=== PATIENT | male | born 1955 | race Caucasian/White ===

== ENCOUNTER 2018-04-04 06:37 | Emergency (ER) | payer MEDICAID, SELFPAY ==
[2018-04-04 06:45] VITALS: BP 177/84; PULSE 89; RESP 18; TEMP 36.5; O2SAT 96
[2018-04-04 07:23] LABS: Bilirubin Negative (Negative); Blood Moderate (Negative); Clarity Sl Cloudy; Glucose Negative (Negative); Ketones Negative (Negative); Leukocyte Esterase Trace (Negative); Nitrite Positive (Negative); Specific Gravity >= 1.030 (1.005-1.025)
--- NOTE | 2018-04-04 07:27 | ED.FU.B ---
- Follow Up Follow Up Plan: Patient had presented with complaints of urinary symptoms and decreased urination. Due to other critical patients in the department, he was not seen but after discussion with the nurse regarding his complaints basic orders for a liter of IV fluid, CBC, BMP, urinalysis was placed. When nursing went to start his IV and collect his blood, he asked if he would be out of the ED by 8 AM. He was told that this was unlikely. He then, according to the nurse, ripped his wrist bracelet off and said I'm out of here and left. He was not formally seen by me. Orders were canceled. Patient left after triage without being seen.
[2018-04-04 07:31] LABS: Bacteria Many HPF (Negative); C & S Indicated? Yes; Casts Negative LPF (Negative); Crystals Negative HPF (Negative); Epithelial Cells Negative HPF (Negative); Mucus Negative (Negative)
== END 2018-04-04 07:18 | disposition left before discharge ==
PROVIDERS: Emergency Provider Emergency Medicine; PCP Family Medicine
DX: Z53.21 Procedure and treatment not carried out due to patient leaving prior to being seen by health care provider (principal)
CPT/HCPCS: 80048; 81003; 81015; 85025; 87086

== ENCOUNTER 2018-04-04 20:53 | Emergency (ER) | payer MEDICAID, SELFPAY ==
[2018-04-04 21:06] VITALS: BP 153/80; PULSE 85; RESP 16; TEMP 36.7; O2SAT 98
--- NOTE | 2018-04-04 21:43 | DI.RPTCT_ITS ---
SYMPTOM/DIAGNOSIS: UTI, HISTORY OF STONES, SOFT LEFT SIDED DISCOMFORT RENAL COLIC CT: Images were performed from the level of the adrenals through the ischial tuberosities without IV or oral contrast. The lung bases are clear. The liver is mildly enlarged and shows fatty infiltration. There is no evidence of biliary dilatation. A noncalcified gallstone is faintly visible. There is no gallbladder distension or wall thickening. The spleen, pancreas and right adrenal are unremarkable. There is a stable mass of the left adrenal gland containing fat, consistent with an adenoma vs myolipoma. There is mild dilatation of the left renal pelvis and left ureter. There is mild stranding around the left ureter. No renal, ureteral or bladder calculi seen. The prostate is markedly enlarged. There is stranding around the bladder which could indicate acute cystitis. There is no dilatation of the right renal collecting system. There is nonspecific bilateral virgen-renal stranding. The appendix appears normal. There is no bowel dilatation or inflammatory change. Diverticulosis is noted in the sigmoid region. No lytic or blastic bony lesions seen. IMPRESSION: Mild dilatation of the left renal collecting system with no visible stone. The findings could be secondary to a recently passed stone. There is marked enlargement of the prostate to 7 cm in diameter. There is bladder wall thickening and surrounding stranding which could be secondary to cystitis. A bladder mass could not be excluded on this exam.
--- NOTE | 2018-04-04 21:43 | ED.GENADUL_ITS ---
Disposition Clinical Impression: UTI (urinary tract infection), BPH (benign prostatic hyperplasia), Scrotal swelling Disposition: HOME Condition: Good Instructions: Urinary Tract Infection in Men (ED), Levofloxacin (By mouth) Additional Instructions: Please get prescriptions filled in the morning and start taking both potassium supplement and antibiotic as directed. Contact your primary care physician to make follow-up arrangements for early next week. Return to the emergency department for spiking fevers, confusion, increasing back or abdominal pain, inability to urinate, other concerns. Would also recommend follow-up with urology, Dr. Moura because of your enlarged prostate and the swelling in your left scrotum. Please call his office to make arrangements for follow-up in the next 1-2 weeks. Prescriptions: Levofloxacin [Levaquin] 750 mg PO DAILY #14 tablet Potassium Chloride [K-Dur] 20 meq PO DAILY #14 tabcr Referrals: José Miguel Moura MD [ [facility] STAFF PHYSICIAN] - Kennedy Mason [Primary Care Provider] - Medical Decision Making - Lab Data Results reviewed for labs ordered during visit: Yes - Radiology Data Radiology results: report reviewed - Medical Decision Making Patient with UTI by urinalysis this morning. Repeat not sent. Bladder scan this morning showed residual of only about 60 mL. Bladder scan tonight with residual of only about 110. We will not place catheter at this point. Will place IV and get a CBC and chemistry. We will give a dose of IV ceftriaxone. Will give a liter of LR. Because of the prior history of kidney stones and complaints of may be some left-sided abdominal pain will get a stone study to be sure we are not dealing with an infected stone. 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 He does have a large swollen left hemiscrotum which he states is unchanged since hernia repair this year. It is not tender. He has an enlarged prostate on rectal exam but it does not appear to be tender. Patient's laboratory studies significant for potassium of 2.9. He is ordered for both oral and IV replacement. He is on a combination lisinopril/ hydrochlorothiazide tablet. He is not on potassium supplementation. We will give him a prescription for potassium. His white count is 11. His creatinine is normal. His CT scan shows hepatomegaly. He also is noted to have a mass in the left adrenal most likely adenoma. He has some nonspecific bilateral perinephric stranding and maybe a little bit of prominence in the left collecting system. There is no stone. He does have evidence of significant cystitis. He also has an extremely large prostate. Patient has received IV ceftriaxone. He does not look toxic. His bladder scan is reasonable and he is able to urinate. He should be able to manage as an outpatient on oral Levaquin. Will discharge home with instructions to return to ED over the weekend if he has any spiking fevers, altered mental status, inability to urinate, increasing abdominal pain, other concerns. We will otherwise have him follow-up with primary care next week for reevaluation and probably repeat potassium level. I will also refer him to Dr. Moura from urology for evaluation of his BPH and his enlarged left hemiscrotum. This does not appear to be an acute issue. History of Present Illness - General Chief complaint: Urinary Stated complaint: UNABLE TO URINATE X 2 DAYS Time Seen by Provider: 04/04/18 20:54 Source: patient Mode of arrival: ambulatory Limitations: no limitations - History of Present Illness Initial comments: Patient presents to ED with continued complaints of difficulty urinating, urgency, sensation of not emptying his bladder for the last few days. He has nausea and feels generally unwell. He has had sweats but he does not know if he has had fever. He has had no chills. He has no back pain. He has left testicular swelling which has been present since a hernia repair earlier this year. He does not complain of testicular pain. He maybe has some left sided abdominal pain on and off but is not clear about this. He had presented this morning but when he was told that he would not be ready for discharge until after 8 AM he abruptly left. He had provided a urine which came back positive for infection. I had asked for him to be contacted to return here or follow-up with primary care. - Related Data Aspirin [Aspirin Ec] 81 mg PO daily prn 11/27/16 Lisinopril/Hydrochlorothiazide [Lisinopril-Hctz 20-25 Mg Tab] 1 tab-cap PO DAILY #90 tab-cap 07/27/17 Amlodipine Besylate 5 mg PO DAILY #90 tab-cap 01/23/18 Bismuth Subsalicylate [Pepto-Bismol Suspension] 1 cap PO daily prn 01/23/18 Levofloxacin [Levaquin] 750 mg PO DAILY #14 tablet 04/05/18 Potassium Chloride [K-Dur] 20 meq PO DAILY #14 tabcr 04/05/18 Allergies Allergy/AdvReac Type Severity Reaction Status Date / Time terbinafine HCl Allergy Intermediate CHEST PAIN Unverified 04/04/18 06:52 [From Lamisil] /SOB MPI Contrast AdvReac Intermediate Nausea, Uncoded 04/04/18 06:52 vomiting malaise Review of Systems Constitutional: diaphoresis, malaise. denies: chills, fever Eyes: denies: eye discharge, vision change ENT: denies: throat pain, congestion Respiratory: denies: cough, shortness of breath Cardiovascular: denies: chest pain Gastrointestinal: abdominal pain (maybe on/off but not currently), nausea. denies: vomiting, diarrhea Genitourinary: urgency, dysuria, frequency, other (swollen left scrotum). denies: testicular pain Musculoskeletal: denies: back pain, arthralgia Skin: denies: rash Neurological: denies: headache, weakness, numbness Past Medical History - Past Medical History Medical history: GERD, hypertension BPH Surgical history: herniorraphy, other (TURP) - Social History Smoking status: former smoker Alcohol use: none Drug use: none General Exam - General Limitations: no limitations General appearance: alert, in no apparent distress - Head Head exam: Present: atraumatic, normocephalic - Eye Eye exam: Present: normal apperance - ENT ENT exam: Present: mucous membranes moist - Respiratory Respiratory exam: Present: normal lung sounds bilaterally - Cardiovascular Cardiovascular Exam: Present: regular rate, normal rhythm, normal heart sounds - GI/Abdominal GI/Abdominal exam: Present: soft, other (Left rectus diathesis). Absent: distended, tenderness, guarding - Rectal Rectal exam: Present: normal inspection, normal rectal tone, prostate enlargement. Absent: prostate tenderness - exam: Present: normal inspection, scrotal swelling (Markedly so on left). Absent: testicular tenderness - Extremities Exam Extremities exam: Present: normal inspection. Absent: tenderness - Back Exam Back exam: Absent: CVA tenderness (R), CVA tenderness (L) - Neurological Exam Neurological exam: Present: alert, oriented X3, CN II-XII intact. Absent: motor sensory deficit - Psychiatric Psychiatric exam: Present: normal affect, normal mood - Skin Skin exam: Present: warm, dry, intact Course Vital Signs - 24 hr 04/04/18 21:06 Temperature 98.1 F Pulse 85 Respiratory 16 Rate Blood Pressure 153/80 Pulse Oximetry 98
[2018-04-04] MEDS: Lactated Ringers 1,000 ML 1000 ML IV (21:59)
[2018-04-04 22:04] LABS: Abs Immature Grans 0.03 k/cumm (0.0-0.09); Absolute Basophil Count 0.02 k/cumm (0.0-0.2); Absolute Eosinophil Count 0.15 k/cumm (0.0-0.7); Absolute Lymphocyte Count 1.68 k/cumm (1.2-3.4); Basophils % 0.2; Eosinophils % 1.3; HCT 40.8 % (40.0-50.0); HGB 14.3 g/dL (13.5-17.5); Immature Grans % 0.3; Mean Corpuscular Hemoglobin 29.4 pg (27.0-33.0); Mean Corpuscular Volume 83.8 fL (80-95); Mean Platelet Volume 9.6 fL (8.0-11.0); Neutrophils % 70.2; Platelet Count 219 x1000/uL (130-400); RBC 4.87 m/cumm (4.50-6.00); RBC Distribution Width 14.2 % (11.8-14.1); White Blood Cell Count 11.19 k/cumm (4.4-10.8)
[2018-04-04 22:09] LABS: Anion Gap 8.3 mmol/L (3-11); BUN 18 mg/dL (7-18); CO2 31.7 mmol/L (21.0-32.0); CREATININE 0.92 mg/dL (0.70-1.30); Calcium 9.6 mg/dL (8.5-10.1); Chloride 94 mmol/L (98-107); Glucose 104 mg/dL (70-100); Sodium 134 mmol/L (136-145)
[2018-04-04 22:15] LABS: Potassium 2.9 mmol/L (3.5-5.1)
[2018-04-04] MEDS: Potassium Chloride 20 MEQ TABCR 40 MEQ PO (22:28)
[2018-04-04 22:36] LABS: Absolute Monocyte Count 1.45 k/cumm (0.11-0.7); Absolute Neutrophil Count 7.86 k/cumm (1.2-6.7)
[2018-04-04] MEDS: POTASSIUM CHLORIDE 10 MEQ/100 ML BAG 100 MEQ IVPB (22:45)
--- NOTE | 2018-04-04 23:02 | DI.VRAD_ITS ---
EXAM: CT Abdomen and Pelvis Without Intravenous Contrast EXAM DATE/TIME: 04/04/2018 9:45 PM CLINICAL HISTORY: 62 years old, male; Pain; Abdominal pain; Generalized; Patient HX: History of stones, uti, some left side discomfort TECHNIQUE: Axial computed tomography images of the abdomen and pelvis without intravenous contrast. Coronal and sagittal reformatted images were created and reviewed. COMPARISON: PROSTATE US AND NEEDLE BIOPSY 2013-08-19 10:42 FINDINGS: Lower thorax: A small hiatal hernia is present. ABDOMEN: Liver: There is hepatomegaly. The liver measured approximately 18.1 cm in the midclavicular line. Gallbladder and bile ducts: Normal. No calcified stones. No ductal dilation. Pancreas: Normal. No ductal dilation. Spleen: Normal. No splenomegaly. Adrenals: An approximately 3.1 x 3.0 cm solid mass is seen within the apex of the left adrenal gland. This is thought likely consistent with a cortical adenoma. The right adrenal gland appeared normal. Kidneys and ureters: Nonspecific bilateral perinephric stranding is noted. The stranding appears slightly asymmetrically more pronounced on the left. There is slight prominence of the left intrarenal collecting system with a continuous mild left ureter demonstrated. These findings may be consistent with recent passage of a tiny calculus. Stomach and bowel: Diverticulosis coli is identified; most prevalent in the sigmoid region. No associated acute diverticulitis. Marginal osteophytic spurring is present throughout the lumbar vertebrae. Appendix: No evidence of appendicitis. PELVIS: Bladder: Perivesical stranding is present indicative of acute cystitis. Reproductive: The seminal vesicles appeared normal and symmetrical in size. There is marked prostatic hypertrophy noted. The prostate gland measured approximately 7.0 cm transversely. ABDOMEN and PELVIS: Intraperitoneal space: Normal. No free air. No significant fluid collection. Bones/joints: No acute fracture. No dislocation. Soft tissues: Unremarkable. Vasculature: Normal. No abdominal aortic aneurysm. Lymph nodes: Normal. No enlarged lymph nodes. IMPRESSION: 1. There is evidence of acute cystitis identified. 2. Findings suspicious for recent passage of a tiny calculus from the left renal collecting system as described above. 3. 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 ACR White Paper guidelines (Bharati, et al. JACR 2010; 7(10):754-06) suggest that no follow-up is necessary. Dictated and Authenticated by: Shin Hernandez MD. Ordering:SAHIL NAVA MD
[2018-04-05 00:25] VITALS: BP 153/80; PULSE 85; RESP 16; O2SAT 98
--- NOTE | 2018-04-05 12:16 | PDOC.ERCMPRO ---
Care Management Progress Note 04/05-Dr. Zuniga requested assistance with a Urology appt as soon as possible for scrotal swelling, BPH, and UTI. Patient was in the ED twice yesterday. First time patient left stating he had an appointment he needed to go to. Referral faxed to Urology this am.
== END 2018-04-05 00:24 | disposition home or self-care (01) ==
PROVIDERS: Emergency Provider Emergency Medicine; PCP Family Medicine
DX: N40.1 Benign prostatic hyperplasia with lower urinary tract symptoms (principal); R39.15 Urgency of urination; R33.9 Retention of urine, unspecified; N50.89 Other specified disorders of the male genital organs; E87.6 Hypokalemia; Z87.442 Personal history of urinary calculi; R93.2 Abnormal findings on diagnostic imaging of liver and biliary tract; R93.422 Abnormal radiologic findings on diagnostic imaging of left kidney; I10 Essential (primary) hypertension
CPT/HCPCS: 36415; 80048; 87077; 96361; 96365; 96367; 99284; 74176; 81003; 81015; 85025; 87086; 87186; 99285; J0696; J3480

== ENCOUNTER 2018-04-05 17:18 | Emergency (ER) | payer MEDICAID, SELFPAY ==
[2018-04-05 17:23] VITALS: BP 148/73; PULSE 95; RESP 22; TEMP 36.6; O2SAT 99
[2018-04-05] MEDS: Lidocaine 2% Jelly 11 ML SYR (17:35)
--- NOTE | 2018-04-05 18:02 | ED.GENADUL ---
Disposition Clinical Impression: Urinary retention, UTI (urinary tract infection) Disposition: HOME Instructions: Urinary Retention in Men (ED) Additional Instructions: Continue to take antibiotic as prescribed. Please follow-up with your primary care physician and urology. Return to the emergency department immediately for any worsening or new concerning symptoms. Referrals: Kennedy Mason [Primary Care Provider] - José Miguel Moura MD [ [facility] STAFF PHYSICIAN] - Medical Decision Making - Medical Decision Making 18:15 --62-year-old male with history of prostate enlargement, status post TURP remotely, recently seen here in emergency department and diagnosed with UTI, prostate enlargement and scrotal swelling. He is being treated with Levaquin. Returns with inability to urinate. Baxter catheter placed by nursing and patient had significant and complete resolution of discomfort. 1 L of urinary output with some blood clot that cleared with irrigation. Plan is to discharge the patient have him follow-up with his primary care physician and urology. He understands importance of completing antibiotic prescription as prescribed. He also understands importance of timely follow-up and has a appointment scheduled with his primary care physician early next week. I did encourage him to return for any worsening or new concerning symptoms. History of Present Illness - General Chief complaint: Urinary Stated complaint: RECHECK Time Seen by Provider: 04/05/18 17:41 Source: patient, RN notes reviewed Mode of arrival: ambulatory Limitations: no limitations - History of Present Illness Initial comments: 62-year-old male with history of BPH, remote TURP, seen here in the ED for difficulty urinating, urgency and sense of incomplete emptying for the past few days. He had CT imaging that revealed mass in left adrenal most likely adenoma, nonspecific bilateral perinephric stranding and prominence of the left collecting system. Was also noted to have an extremely large prostate. He was diagnosed with a urinary tract infection and started on Levaquin. He was able to urinate. He was discharged home with referral to Dr. Moura for follow-up of his enlarged prostate and also enlarged left hemiscrotum. Patient returns tonight with complaint that he is unable to urinate and bladder fullness. Discomfort is severe. No modifiers. He notes that he has had decreased urination for the past few days but much worse today. He has no associated fever today. No vomiting today. - Related Data Aspirin [Aspirin EC] 81 mg PO daily prn 11/27/16 Lisinopril/Hydrochlorothiazide [Lisinopril-Hctz 20-25 mg Tab] 1 tab-cap PO DAILY #90 tab-cap 07/27/17 Amlodipine Besylate 5 mg PO DAILY #90 tab-cap 01/23/18 Bismuth Subsalicylate [Pepto-Bismol Suspension] 1 cap PO daily prn 01/23/18 Levofloxacin [Levaquin] 750 mg PO DAILY #14 tablet 04/05/18 Potassium Chloride [K-Dur] 20 meq PO DAILY #14 tabcr 04/05/18 Allergies Allergy/AdvReac Type Severity Reaction Status Date / Time terbinafine HCl Allergy Intermediate CHEST PAIN Unverified 04/04/18 06:52 [From Lamisil] /SOB MPI Contrast AdvReac Intermediate Nausea, Uncoded 04/04/18 06:52 vomiting malaise Review of Systems Constitutional: denies: fever Genitourinary: as per HPI Comment: All other systems reviewed and negative Past Medical History - Past Medical History Medical history: GERD, hypertension BPH Surgical history: herniorraphy, other (TURP) - Social History Alcohol use: none Drug use: none General Exam - General Limitations: no limitations General appearance: alert, other (Uncomfortable on arrival) - Eye Eye exam: Absent: scleral icterus - ENT ENT exam: Present: mucous membranes moist - Respiratory Respiratory exam: Present: normal lung sounds bilaterally. Absent: respiratory distress, wheezes, rales, rhonchi - Cardiovascular Cardiovascular Exam: Present: regular rate, normal rhythm, normal heart sounds - GI/Abdominal GI/Abdominal exam: Present: soft, tenderness (Suprapubic fullness and tenderness on arrival). Absent: guarding, rebound, rigid - Extremities Exam Extremities exam: Absent: pedal edema - Neurological Exam Neurological exam: Present: alert. Absent: altered - Skin Skin exam: Present: warm, dry, intact Course Vital Signs - 24 hr 04/05/18 17:23 Temperature 36.6 C Pulse 95 H Respiratory 22 Rate Blood Pressure 148/73 Pulse Oximetry 99
--- NOTE | 2018-04-05 18:38 | NUR.NOTE ---
Nursing Note: This screenplay writer went in to change patient over to the leg bag to go home. She noted anjum red blood with clots in the tubing. This screenplay writer notified MD and flushed catheter with 30 cc of sterile water. Catheter flushed well but clots were withdrawn from cath. this screenplay writer again flushed catheter with 30 ccs and a few less clots flowed out. This screenplay writer connected patient to leg bag and educated him on how to change his bags. how to empty them both.. Also catheter care instructions given. Prior to arrival this screenplay writer ensured catheter was patent and draining. Minimal clots noted.
[2018-04-05 18:44] VITALS: BP 158/84; PULSE 94; RESP 18; TEMP 36; O2SAT 98
== END 2018-04-05 18:39 | disposition home or self-care (01) ==
PROVIDERS: Emergency Provider Student in an Organized Health Care Education/Training Program; PCP Family Medicine
DX: N40.1 Benign prostatic hyperplasia with lower urinary tract symptoms (principal); R33.8 Other retention of urine; N39.0 Urinary tract infection, site not specified; R39.15 Urgency of urination; I10 Essential (primary) hypertension
CPT/HCPCS: 51702; 99283

== ENCOUNTER → 2018-04-10 10:41 | Outpatient (CLI) | payer MEDICAID, SELFPAY ==
[2018-04-10 13:01] LABS: CREATININE 0.98 mg/dL (0.70-1.30); Potassium 4.2 mmol/L (3.5-5.1)
== END ==
PROVIDERS: PCP Family Medicine; Visit Provider Family Medicine
DX: I10 Essential (primary) hypertension (principal)
CPT/HCPCS: 36415; 82565; 84132

== ENCOUNTER 2018-04-20 08:30 | Emergency (ER) | payer MEDICAID, SELFPAY | END 2018-04-20 09:22 | disposition home or self-care (01) | LOC: ER 12:10 | PROVIDERS: Emergency Provider Emergency Medicine; PCP Family Medicine | DX: T83.031A Leakage of indwelling urethral catheter, initial encounter (principal); Z71.1 Person with feared health complaint in whom no diagnosis is made | CPT/HCPCS: 99281 ==

== ENCOUNTER 2018-07-17 14:43 | Outpatient (CLI) | payer MEDICARE, MEDICAID, SELFPAY | END 2018-07-17 15:03 | PROVIDERS: PCP Family Medicine; Visit Provider Urology | DX: R33.9 Retention of urine, unspecified (principal) | CPT/HCPCS: 87086 ==

== ENCOUNTER 2018-10-14 00:41 | Outpatient (CLI) | payer MEDICARE, MEDICAID, SELFPAY ==
--- NOTE | 2018-10-14 07:45 | DI.CT_ITS ---
SYMPTOMS/DIAGNOSIS: H/O UTI NONCONTRAST CT OF THE ABDOMEN AND PELVIS: Comparison is made with [id number] and [id number]. The heart size is normal. The lung bases are clear. The liver again shows fatty infiltration. There is a question of gallstones. There is no gallbladder wall thickening or biliary dilatation. The spleen, pancreas and right adrenal are unremarkable. 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 The pancreas is unremarkable. The appendix appears normal. There is no bowel dilatation. There are diverticula in the sigmoid colon. The prostate is again noted to be markedly enlarged. The prostate appears small when compared with the previous exam and there is central defect which could relate to a previous procedure. The bladder is not well distended. There is mild bladder wall thickening. There is no longer left hydronephrosis. No urinary tract calculi are seen. There are large bilateral hydroceles. IMPRESSION: Resolution of left hydronephrosis. Decrease in size of prostate presumably related to surgical procedure. Bilateral hydroceles.
== END 2018-10-14 01:01 ==
PROVIDERS: PCP Family Medicine; Visit Provider Urology
DX: N43.3 Hydrocele, unspecified (principal); K76.0 Fatty (change of) liver, not elsewhere classified; N40.0 Benign prostatic hyperplasia without lower urinary tract symptoms; Z87.440 Personal history of urinary (tract) infections
CPT/HCPCS: 74176

== ENCOUNTER 2018-11-07 10:51 | Outpatient (CLI) | payer MEDICARE, MEDICAID, SELFPAY | END 2018-11-07 11:11 | PROVIDERS: PCP Family Medicine; Visit Provider Urology | DX: R30.0 Dysuria (principal); Z87.440 Personal history of urinary (tract) infections | CPT/HCPCS: 87077; 87086; 87186 ==

== ENCOUNTER 2018-11-19 10:53 | Outpatient (RCR) | payer MEDICARE, MEDICAID, SELFPAY ==
--- NOTE | 2018-11-19 10:54 | COCO.CNN ---
Primary Reason for Visit Medical/Dental/Vision (help with mail) Referral to Care Coordination Referral to Care Coordination: No Referral to Services: No Care Plan - Plan of Care Assessment/Background: Damon came into meet with the CHW to look at some mail he received form the [facility] and [facility]. The CHW explained what the mail from [facility] and the [facility] ment. He will call or stop back in if he needs any more help with anything. [facility] Self Management Plan Complete?: Yes (action plan) Confidence Level (enter 1-10): 9 (will stop in if he needs more assistance from aleyda)
--- NOTE | 2018-11-19 10:57 | PDOC.CNN_ITS ---
Primary Reason for Visit Medical/Dental/Vision (help with mail) Referral to Care Coordination Referral to Care Coordination: No Referral to Services: No Care Plan - Plan of Care Assessment/Background: Damon came into meet with the CHW to look at some mail he received form the [facility] and [facility]. The CHW explained what the mail from [facility] and the [facility] ment. He will call or stop back in if he needs any more help with anything. [facility] Self Management Plan Complete?: Yes (action plan) Confidence Level (enter 1-10): 9 (will stop in if he needs more assistance from aleyda)
== END 2018-12-17 23:59 | disposition home or self-care (01) ==
LOC: COCO 10:53
PROVIDERS: PCP Family Medicine; Visit Provider Family Medicine
DX: R69 Illness, unspecified (principal)
CPT/HCPCS: 87086

== ENCOUNTER 2018-11-21 13:35 | Outpatient (REF) | payer MEDICARE, MEDICAID, SELFPAY | END 2018-11-21 13:55 | LOC: LBN 13:35 | PROVIDERS: PCP Family Medicine; Visit Provider Urology | DX: Z87.440 Personal history of urinary (tract) infections (principal) | CPT/HCPCS: 87086 ==

== ENCOUNTER 2019-06-23 01:43 | Outpatient (CLI) | payer MEDICARE, SELFPAY ==
[2019-06-23 12:09] LABS: Calculated LDL 72 mg/dL; Cholesterol 152 mg/dL (50-200); HDL Cholesterol 70 mg/dL (40-60); Triglyceride 54 mg/dL (30-150)
== END 2019-06-23 02:03 ==
PROVIDERS: PCP Family Medicine; Visit Provider Family Medicine
DX: I10 Essential (primary) hypertension (principal); R07.9 Chest pain, unspecified
CPT/HCPCS: 36415; 80061; 82565; 84132

== ENCOUNTER 2019-07-16 01:16 | Outpatient (CLI) | payer MEDICARE, SELFPAY ==
--- NOTE | 2019-07-16 07:01 | ETT_ITS ---
APPROVED REPORT Exam: Exercise Treadmill Patient Location: Out-Patient Room/Bed: Stress Nurse: Orly Carroll RN BMI: 33.56 Baseline Rhythm: NSR Indications: chest pain with activity associated with shortness of breath. Medical History Medical History: HTN Cardiac Medications: Aspirin, Amlodipine, Lisinopril Allergies: Terbinafine HCL. Amoxicillin. Levofloxacin. Cardiac Risk Factors: HTN. Former smoker, quite 32 years ago. Former chewing tobaco use, quite 5 year s ago. Pretest Chest Pain Characteristics: Exertional Chest pain Exercise History: Physically active Physical Disabilities: Knees Lung Sounds: Clear to auscultation Heart Sounds: Regular Stress Test Details Test: Exercise stress testing was performed using a Tomasz protocol. Rest Stress HR Max Heart Rate (APMHR): 154 bpm Resting HR Supine: 63 bpm Target HR (85% APMHR): 130 bpm Resting HR Standin bpm Max HR Achieved: 141 bpm % of APMHR: 91 Recovery HR: 68 bpm HR response to stress: Normal HR response to stress BP Resting BP Supine: 162/70 mmHg Resting BP Standin/80 mmHg Max BP: 188/74 mmHg Recovery BP: 154/70 mmHg BP response to stress: Normal blood pressure response to stress. ECG Resting ECG: Sinus Rhythm Stress ECG: Sinus Tachycardia ST Change: Normal Arrhythmia: None Recovery ECG: Sinus Rhythm Recovery ST Change: Normal Clinical Time of Stop for Tomasz: 0600 Reason for Termination: Knee pains. Exercise duration: 6 min00 sec Highest Stage Achieved: Stage 2: 2.5 mph at 12% grade. Exercise capacity: 7.05 METs Functional Capacity: Mildly deminished capacity Scale: Active Stress ECG Conclusion 1. Patient exercised for 6 minutes (7 METS) which is diminished exercise capacity for his age. 2. The test was stopped due to knee pain but the patient reached 90% of his predicted heart rate. 3. There was no evidence of ischemia on the ECG during maximal stress. 4. The Ramos Score (5) estimates an annual cardiovascular mortality of 1% and a five year survival of 94%. Using the Ramos Score there is a low probability of any angiographic coronary disease. Protocol Used: Tomasz Protocol Stress Test Summary STAGE Time (mins) Speed (mph) Grade (%) HR BP SYMPTOMS METS Supine 63 162/70 Standing 72 154/80 1 3 1.7 10 122 168/80 4.6 2 6 2.5 12 138 188/74 7 3 9 3.4 14 Treadmill stopped at 6 minutes due to knee pains. 10.2 4 12 4.2 16 12.9 5 15 5.0 18 17.2 1 min recovery 108 174/72 3 min recovery 76 174/70 6 min recovery 68 154/70
== END 2019-07-16 01:36 ==
PROVIDERS: PCP Family Medicine; Visit Provider Family Medicine
DX: R07.9 Chest pain, unspecified (principal); R06.02 Shortness of breath; I10 Essential (primary) hypertension; Z87.891 Personal history of nicotine dependence
CPT/HCPCS: 93016; 93018; 93017

== ENCOUNTER 2023-02-21 10:24 | Outpatient (CLI) | payer MEDICARE, SELFPAY ==
[2023-02-21 12:58] LABS: Anion Gap 7.7 mmol/L (3-11); BUN 15 mg/dL (7-18); CO2 31.3 mmol/L (21.0-32.0); Calcium 9.9 mg/dL (8.5-10.1); Calculated LDL 72 mg/dL (<100); Chloride 102 mmol/L (98-107); Cholesterol 143 mg/dL (<200); Estimated GFR 81.47 (mL/min/1.73m2); Glucose 98 mg/dL (74-106); HDL Cholesterol 66 mg/dL (40-60); Potassium 3.7 mmol/L (3.5-5.1); Sodium 141 mmol/L (136-145); Triglyceride 29 mg/dL (<150)
== END 2023-02-21 10:25 | disposition home or self-care (01) ==
PROVIDERS: PCP Family Medicine; Referring Provider Family Medicine; Visit Provider Family Medicine
DX: E78.5 Hyperlipidemia, unspecified (principal); E87.1 Hypo-osmolality and hyponatremia
CPT/HCPCS: 36415; 80048; 80061

== ENCOUNTER 2024-04-16 14:34 | Outpatient (CLI) | payer MEDICARE, SELFPAY ==
--- NOTE | 2024-04-16 14:30 | RT.EKG_ITS ---
APPROVED REPORT Exam: Resting ECG Reason for Exam: Shortness of breath Patient Location: O HR:64 bpm ECG Measurements Heart Rate 64 AXIS AL 135 P 38 QRSd 100 QRS 42 QT 407 T 44 QTc 420 Conclusion Sinus rhythm...normal P axis, V-rate 50- 99 Probable left ventricular hypertrophy...multiple LVH criteria
== END 2024-04-16 14:35 | disposition home or self-care (01) ==
PROVIDERS: PCP Family Medicine; Visit Provider Family Medicine
DX: R06.02 Shortness of breath (principal)
CPT/HCPCS: 93010

== ENCOUNTER 2024-04-16 16:05 | Outpatient (REF) | payer MEDICARE, SELFPAY ==
[2024-04-16 21:37] LABS: Abs Immature Grans 0.01 10^3/uL (0.0-0.06); Absolute Basophil Count 0.02 10^3/uL (0.0-0.2); Absolute Eosinophil Count 0.18 10^3/uL (0.0-0.7); Absolute Lymphocyte Count 1.56 10^3/uL (1.2-3.4); Absolute Monocyte Count 0.65 10^3/uL (0.1-0.8); Basophils % 0.4 %; Eosinophils % 3.3 %; HGB 12.7 g/dL (13.5-17.5); Immature Grans % 0.2 %; Lymphocytes % 28.3 %; MCH 27.7 pg (27.0-33.0); MCHC 32.6 % (32.0-36.0); MCV 85 fL (80-95); MPV 9.5 fL (8.0-11.0); Monocytes % 11.8 %; Platelet Count 268 10^3/uL (130-400); RBC 4.59 10^6/uL (4.36-5.78); RDW 13.4 % (11.8-14.1); RDW-SD 41.6 fL; WBC 5.52 10^3/uL (4.4-10.8)
[2024-04-16 21:44] LABS: ESR 26 mm/hr (0-20)
[2024-04-16 22:01] LABS: ALT 25 U/L (16-63); AST 23 U/L (15-37); Albumin 3.7 g/dL (3.4-5.0); Alkaline Phosphatase 75 U/L (46-116); Anion Gap 9.1 mmol/L (3-11); BUN 11 mg/dL (7-18); Bilirubin, Total 0.79 mg/dL (0.2-1.0); C-Reactive Protein 2.22 mg/dL (<or=0.5); CO2 30.9 mmol/L (21.0-32.0); CREATININE 0.9 mg/dL (0.70-1.30); Calcium 10.5 mg/dL (8.5-10.1); Chloride 100 mmol/L (98-107); Estimated GFR 91.88 (mL/min/1.73m2); Glucose 104 mg/dL (74-106); Potassium 3.8 mmol/L (3.5-5.1); Sodium 140 mmol/L (136-145); TSH (W/Ref FT4) 1.43 uIU/mL (0.36-3.74); Total Protein 6.8 g/dL (6.4-8.2)
[2024-04-18 09:51] LABS: Lyme Ab w Rflx to Lyme Confirm Negative (Negative)
[2024-04-20 15:39] LABS: Anaplasma phagocytophilum Negative (Negative); B. miyamotoi PCR Negative (Negative); Babesia divergens/MO-1 Negative (Negative); Babesia duncani Negative (Negative); Babesia microti Negative (Negative); Ehrlichia chaffeensis Negative (Negative); Ehrlichia ewingii/canis Negative (Negative); Ehrlichia muris eauclairensis Negative (Negative)
== END 2024-04-16 16:06 | disposition home or self-care (01) ==
LOC: LBN 16:05
PROVIDERS: PCP Family Medicine; Visit Provider Family Medicine
DX: E03.9 Hypothyroidism, unspecified (principal); I10 Essential (primary) hypertension; R63.4 Abnormal weight loss; R06.02 Shortness of breath; Z00.00 Encounter for general adult medical examination without abnormal findings
CPT/HCPCS: 80053; 85652; 87798; 84443; 85025; 86140; 86618

== ENCOUNTER 2024-05-28 10:30 | Outpatient (CLI) | payer MEDICARE, SELFPAY ==
[2024-05-28 13:28] LABS: Total Iron Binding Capacity 286 ug/dL (250-450)
[2024-05-28 13:55] LABS: Ferritin 261 ng/mL (26-388); Vitamin B12 156 pg/mL (193-986)
== END 2024-05-28 10:31 | disposition home or self-care (01) ==
LOC: LOS 10:33
PROVIDERS: PCP Family Medicine; Visit Provider Family Medicine
DX: D64.9 Anemia, unspecified (principal)
CPT/HCPCS: 36415; 82607; 82728; 83550

== ENCOUNTER 2024-05-30 15:40 | Outpatient (REF) | payer MEDICARE, SELFPAY ==
[2024-05-30 15:19] LABS: Bilirubin Negative (Negative); Blood Negative (Negative); Clarity Clear (Clear); Glucose Negative (Negative); Ketones Negative (Negative); Leukocyte Esterase Negative (Negative); Nitrite Negative (Negative); Specific Gravity 1.025 (1.005-1.025)
== END 2024-05-30 15:41 | disposition home or self-care (01) ==
LOC: LBN 15:40
PROVIDERS: PCP Family Medicine; Visit Provider Family Medicine
DX: R30.0 Dysuria (principal); I10 Essential (primary) hypertension; R63.4 Abnormal weight loss; R05.9 Cough, unspecified; R06.02 Shortness of breath
CPT/HCPCS: 81003